=== PATIENT | female | born 1990 | race Caucasian/White ===

== ENCOUNTER → 2021-04-24 10:29 | Outpatient (CLI) | payer OTHER, MEDICAID, SELFPAY ==
--- NOTE | 2021-04-24 10:31 | DI.RAD.S_ITS ---
PROCEDURE: XR CHEST 2V INDICATIONS: cough, chest congestion, intermittent wheezing TECHNIQUE: 2 views of the chest were acquired. COMPARISON: None. FINDINGS: Surgical changes and devices: None. Lungs and pleura: Lungs are clear. No pleural effusions or pneumothorax. Mediastinum: Mediastinal contours are normal. Heart size is normal. Bones and chest wall: No suspicious bony abnormalities. Soft tissues appear unremarkable. IMPRESSION: No evidence acute pulmonary process. Dictated by: Kwabena Le M.D. on 04/24/2021 at 11:00 Approved by: Kwabena Le M.D. on 04/24/2021 at 11:00
== END ==
PROVIDERS: Family Provider Obstetrics & Gynecology; PCP Family Medicine; Referring Provider Physician Assistant; Visit Provider Physician Assistant
DX: R05 Cough (principal); R06.2 Wheezing; R09.89 Other specified symptoms and signs involving the circulatory and respiratory systems
CPT/HCPCS: 71046

== ENCOUNTER 2025-01-25 10:33 | Emergency (ER) | payer BC, SELFPAY ==
[2025-01-25] VITALS (9 sets, daily range): BP systolic 107–138; BP diastolic 55–72; PULSE 61–78; RESP 14; TEMP 36.7; O2SAT 97–100; BMI 18.6
--- NOTE | 2025-01-25 10:53 | ED.ABDPAIN ---
HPI - Abdominal Pain General Chief Complaint: Abdominal Pain Stated Complaint: lower right stomach side cramps Time Seen by Provider: 01/25/25 10:52 Source: patient Mode of arrival: Ambulatory History of Present Illness HPI narrative: 34-year-old female with no significant past medical history presenting for evaluation from home for abdominal pain. She states that she started her period this morning and she felt/heard a ?pop in her abdomen. She states that she stood up and felt like she was going to pass out secondary to this. She states that she does have history of ovarian cyst, states that she has had pain similar but never to this extent. He is now stating that she is having persistent right lower quadrant abdominal pain. She denies any other symptoms such as headache visual disturbances chest pain shortness breath fever chills nausea vomiting or any other GI/ symptoms time. Related Data Home Medications Medication Instructions Recorded Confirmed No Known Home Medications 04/24/21 04/24/21 Previous Rx's Medication Instructions Recorded benzonatate 100 mg capsule 100 mg PO BID-TID PRN cough #14 04/24/21 caps Allergies Allergy/AdvReac Type Severity Reaction Status Date / Time codeine Allergy Unknown Verified 01/25/25 10:42 hydromorphone Allergy Unknown Verified 01/25/25 10:42 amoxicillin AdvReac Intermediate Itchy and Verified 01/25/25 10:42 nausea Review of Systems Review of Systems Narrative: General: Denies fever, chills, weight loss HEENT: Denies headache, eye drainage, eye irritation, head trauma, sore throat, voice change Cardiovascular: Denies any chest pain, palpitations, tachycardia Respiratory: Denies any shortness of breath, cough, wheeze, stridor GI/: Positive right pelvic pain, Denies any abdominal pain, nausea, vomiting, diarrhea, bright red blood per rectum, melanotic stools, urinary frequency, urinary retention, dysuria, hematuria MSK: Denies any joint pain, muscle pains, swelling Skin: Denies any rashes, lesions, discoloration Neuro: Denies any headache, lightheadedness, dizziness, fainting, weakness Psych: Denies SI/HI Patient History Surgical History Status post delivery (03/07/15) Social History Smoking Status: Unknown if ever smoked Smoking Status: Unknown if ever smoked Exam Narrative Exam Narrative: General: Cooperative, well-developed, not in acute distress HEENT: Normocephalic, atraumatic, PERRLA, normal sclera, eyelids normal Neck: Active full range of motion, atraumatic Chest: Normal to inspection, negative crepitus, no overlying erythema ecchymosis Respiratory: Normal respiratory effort, not in acute respiratory distress, clear to auscultation bilaterally negative cough, wheeze, tachypnea, rhonchi, rales Cardiology: Regular rate rhythm negative gallop, murmur, rubs GI/: Mild tenderness to palpation of the right pelvic region, soft, non rigid, normal to inspection, exam deferred MSK: Full active range of motion in all 4 extremities, atraumatic, no tenderness to palpation of any bony prominences Skin: No rashes or lesions noted Neuro: Alert awake oriented x3, moves all 4 extremities spontaneously, cranial nerves intact, able to answer all questions appropriately follows commands appropriately Psych: Cooperative, negative suicidal or homicidal ideations Initial Vital Signs Initial Vital Signs: Vital Signs Temperature 98.0 F 01/25/25 10:42 Pulse Rate 72 01/25/25 10:42 Respiratory Rate 14 01/25/25 10:42 Blood Pressure 110/55 L 01/25/25 10:42 Pulse Oximetry 99 01/25/25 10:42 Oxygen Delivery Method Room Air 01/25/25 10:42 Course Orders Ordered: ED Orders 01/25/25 10:52 Ictotest Urine Stat Urine Microscopic Stat 01/25/25 10:54 US pelvic complete Stat 01/25/25 11:05 Complete Blood Count AUTO DIFF Stat Comprehensive Metabolic Panel Stat Lipase Stat MAG [Magnesium] Stat Ondansetron HCl (Ondansetron 4 Mg/2 Ml Inj) 4 mg IV NOW PRN PRN Reason: Nausea And Vomiting Last Admin: 01/25/25 11:43 Dose: 4 mg Documented By: MEGAN Ondansetron HCl (Ondansetron 4 Mg Odt) 4 mg PO NOW PRN PRN Reason: Nausea And Vomiting Discontinued Medications Sodium Chloride (Normal Saline 0.9%) 1,000 mls @ 1,000 mls/hr IV BOLUS ONE Stop: 01/25/25 11:53 Last Infusion: 01/25/25 12:37 Dose: Infused Documented By: Admin: 01/25/25 11:43 Dose: 1,000 mls/hr Documented By: MEGAN Ketorolac Tromethamine (Ketorolac 30 Mg/Ml Vial) 30 mg IV NOW ONE Stop: 01/25/25 10:55 Last Admin: 01/25/25 11:43 Dose: 30 mg Documented By: MEGAN Vital Signs Vital signs: Vital Signs - 8 hr 01/25/25 10:42 01/25/25 10:50 01/25/25 10:59 Temperature 98.0 F Pulse Rate 72 66 61 Respiratory Rate 14 Blood Pressure 110/55 L Pulse Oximetry 99 97 99 Oxygen Delivery Method Room Air 01/25/25 10:59 01/25/25 11:00 01/25/25 11:30 Temperature Pulse Rate 66 74 Respiratory Rate Blood Pressure 130/70 Pulse Oximetry 99 99 Oxygen Delivery Method 01/25/25 11:40 01/25/25 11:40 01/25/25 12:00 Temperature Pulse Rate 78 69 Respiratory Rate Blood Pressure 138/72 Pulse Oximetry 97 100 Oxygen Delivery Method 01/25/25 12:30 01/25/25 12:35 01/25/25 12:35 Temperature Pulse Rate 68 75 Respiratory Rate Blood Pressure 107/64 Pulse Oximetry 98 100 Oxygen Delivery Method MDM - Abdominal Pain Differential Diagnosis Differential diagnosis: Likely abdominal pain, pancreatitis and other (Urinary tract infection, ovarian cysts) Lab Data 01/25/25 11:05 01/25/25 11:05 Labs: Lab Results 01/25/25 01/25/25 Range/Units 10:52 11:05 WBC 7.1 (4.5-11.0) X10^3/uL RBC 4.02 (4.0-5.2) X10^6/uL Hgb 12.7 (12.0-16.0) g/dL Hct 37.4 (36-46) % MCV 93.2 (80-100) fL MCH 31.5 (26-34) PG MCHC 33.8 (30-36) % RDW 13.6 (11.6-14.8) % Plt Count 198 (150-400) X10^3/uL Neut % (Auto) 70.9 (50-75) % Lymph % (Auto) 20.9 L (25-40) % Humphreys % (Auto) 5.0 (3-14) % Eos % (Auto) 2.7 (2-4) % Baso % (Auto) 0.5 (0-2) % Neut # (Auto) 5000 (9313-3371) /uL Lymph # (Auto) 1500 (8462-6258) /uL Humphreys # (Auto) 400 (0-900) /uL Eos # (Auto) 200 (0-450) /uL Baso # (Auto) 0 (0-100) /uL Sodium 140 (137-145) mmol/L Potassium 3.9 (3.4-5.1) mmol/L Chloride 107 (98-107) mmol/L Carbon Dioxide 24 (22-32) mmol/L BUN 8 (7-17) mg/dL Creatinine 0.70 (0.52-1.04) mg/dL Estimated GFR > 60 (>60) mL/min BUN/Creatinine Ratio 11.4 (6-22) Glucose 120 H (70-100) mg/dL Calcium 9.0 (8.4-10.2) mg/dL Magnesium 1.7 (1.6-2.3) mg/dL Total Bilirubin 0.8 (0.2-1.3) mg/dL AST 33 (14-36) IU/L ALT 22 (<35) IU/L Alkaline Phosphatase 50 (38-126) U/L Total Protein 7.4 (6.3-8.2) g/dL Albumin 4.4 (3.5-5.0) g/dL Globulin 3.0 (1.7-4.1) g/dL Albumin/Globulin Ratio 1.5 (1.0-2.8) Lipase 36 (23-300) U/L Ur Bilirubin Confirm Negative (Negative) Urine RBC 10-30/hpf H (0-5/HPF) Urine WBC 0-1/hpf (0-5/HPF) Ur Squamous Epith Cells 1-5 /hpf (0-5/HPF) Urine Bacteria None seen (None) Urine Mucus 2+ H (Negative) Ur Culture Indicated? Cult not indicated Vol Urine Centrifuged Low vol <10ml (spun) A Point of care testing: Point of Care Testing Test Results Negative Urine Dip Bedside Urine Glucose Negative Bedside Urine Bilirubin + 1 Bedside Urine Ketone ++ 40 Urine Specific [place] 1.025 Bedside Urine Occult Blood +++ Bedside Urine pH 6.0 Bedside Urine Protein + 30 Bedside Urine Urobilinogen - Negative Bedside Urine Nitrite - Negative Bedside Urine Leukocytes - Negative Esterase Imaging Data US - FILAMENT WELDER: Radiologist's Impression: [address] [address] Ultrasound Report Signed Patient: Emani Shore MR#: [id number] : 1990 Acct:[id number] Age/Sex: 34 / F Date of Service: 01/25/25 Loc: ED Accession Number: [id number] Procedure: US pelvic complete Ordering Provider: Eddie Owen D.O. PROCEDURE: US PELVIC COMPLETE INDICATIONS: right sided pelvic pain TECHNIQUE: Real-time scanning was performed of the pelvic organs, with image documentation. Additional endovaginal scanning was necessary due to incomplete visualization of the adnexal and endometrial structures by transabdominal scanning. COMPARISON: US, US PELVIC+TRANSVAG, 07/24/2016, 8:26. FINDINGS: Uterus: Uterus is anteverted and is prominent in size at 11.1 x 4.6 x 6.3 cm. The myometrium is homogeneous. The endometrium measures 4.5 mm combined thickness. Ovaries: The right ovary measures 1.8 x 3.2 x 1.9 cm, with a calculated ovarian volume of 5.8 cc. The left ovary measures 3.2 x 2.2 x 2.1 cm, with a calculated ovarian volume of 7.7 cc. Simple right ovarian cyst measuring 1.6 cm. Other: No pathologic free abdominal or pelvic fluid. IMPRESSION: Simple right ovarian cyst. MDM Narrative Medical decision making narrative: 34-year-old female with past medical history of ovarian cysts, comes in for right pelvic pain, she states that today she started her menstrual cycle, she states that an hour after she stood up felt a pop to her right pelvic region, state that the pain caused her to feel lightheaded dizzy and sweaty. She states that she is feeling improved but still having some cramping pain. States that she has had similar pain but not this extreme due to her history of ovarian cyst. Patient had lab work urinalysis ultrasound performed here in the emergency department. Ultrasound just showing right simple ovarian cyst, patient without any leukocytosis, had complete resolution of her symptoms here after Toradol and fluids, urinalysis not consistent with acute urinary tract infection, Chem panel unremarkable. Symptoms more likely secondary to patient's menstrual cycles/ovarian cysts, she was given strict return precautions she verbalized understanding of this and agrees to being discharged home with outpatient follow up Discharge Plan Departure Patient Disposition: Home Clinical Impression: Cyst of right ovary Instructions: DI for Ovarian Cyst Activity Restrictions/Additional Instructions: Please follow up with the primary care and OBGYN in outpatient setting Please read the discharge instructions sheet carefully and bring all papers to all doctor follow-up visits, as it may contain information that your doctor may want to see. Disease processes change and evolve, if your symptoms worsen or if you develop any new symptoms that are concerning to you please return for evaluation. Your evaluation today does not show any evidence of any life-threatening/serious illnesses requiring admission to the hospital or surgery. Please follow-up with your doctor for re-evaluation in approximately 1 day. Seek immediate medical attention for any worrisome symptoms. *If you do not have a primary care provider please contact the [facility] Resource line at [phone]. They will ask some questions about your medical history and help get you set up with a doctor in the community. Prescriptions: No Action No Known Home Medications benzonatate 100 mg capsule 100 mg PO BID-TID PRN (Reason: cough) Qty: 14 0RF Referrals: Kale Kelly MD [Primary Care Provider] - Stand Alone Forms: Patient Portal/API/Survey
--- NOTE | 2025-01-25 10:54 | DI.US.S_ITS ---
PROCEDURE: US PELVIC COMPLETE INDICATIONS: right sided pelvic pain TECHNIQUE: Real-time scanning was performed of the pelvic organs, with image documentation. Additional endovaginal scanning was necessary due to incomplete visualization of the adnexal and endometrial structures by transabdominal scanning. COMPARISON: US, US PELVIC+TRANSVAG, 07/24/2016, 8:26. FINDINGS: Uterus: Uterus is anteverted and is prominent in size at 11.1 x 4.6 x 6.3 cm. The myometrium is homogeneous. The endometrium measures 4.5 mm combined thickness. Ovaries: The right ovary measures 1.8 x 3.2 x 1.9 cm, with a calculated ovarian volume of 5.8 cc. The left ovary measures 3.2 x 2.2 x 2.1 cm, with a calculated ovarian volume of 7.7 cc. Simple right ovarian cyst measuring 1.6 cm. Other: No pathologic free abdominal or pelvic fluid. IMPRESSION: Simple right ovarian cyst. We strive to produce accurate, complete, and clear reports of imaging services. To assist us in improving patient care, this report was composed using standard report templates and voice recognition software. Therefore, it may contain abnormal punctuation, insertions and/or omissions. Occasional wrong-word or sound-alike substitutions may occur. Though we review the report and make efforts to correct it, we do recommend that the report be read carefully in proper context to recognize any text inaccuracies. Dictated by: Rosibel Ware M.D. on 01/25/2025 at 12:19 Approved by: Rosibel Ware M.D. on 01/25/2025 at 12:21
[2025-01-25 11:12] LABS: Ictotest Urine Negative (Negative)
[2025-01-25 11:13] LABS: RBC Urine 10-30/HPF (0-5/HPF); Urine Volume Low Vol <10mL (spun); WBC Urine 0-1/HPF (0-5/HPF)
[2025-01-25 11:14] LABS: Bacteria Urine None Seen; Culture Indicated Urine Cult Not Indicated; Mucus Urine 2+ (Negative); Squamous Epithelial Cell Urine 1-5 /HPF (0-5/HPF)
[2025-01-25 11:15] LABS: Add Manual Diff / Slide Review NO; Basophils Absolute Auto 0 /uL (0-100); Basophils Percent Auto 0.5 % (0-2); Eosinophils Absolute Auto 200 /uL (0-450); Eosinophils Percent Auto 2.7 % (2-4); Hematocrit 37.4 % (36-46); Hemoglobin 12.7 g/dL (12.0-16.0); Lymphocytes Absolute Auto 1500 /uL (1100-4500); Lymphocytes Percent Auto 20.9 % (25-40); Mean Corpuscular HGB Conc 33.8 % (30-36); Mean Corpuscular Hemoglobin 31.5 PG (26-34); Mean Corpuscular Volume 93.2 fL (80-100); Monocytes Absolute Auto 400 /uL (0-900); Neutrophils Absolute Auto 5000 /uL (1500-7000); Neutrophils Percent Auto 70.9 % (50-75); Platelet Count 198 X10^3/uL (150-400); Red Blood Cell Count 4.02 X10^6/uL (4.0-5.2); Red Cell Distribution Width 13.6 % (11.6-14.8); White Blood Cell Count 7.1 X10^3/uL (4.5-11.0)
[2025-01-25 11:28] LABS: Alanine Aminotransferase 22 IU/L (<35); Albumin 4.4 g/dL (3.5-5.0); Albumin Globulin Ratio 1.5 (1.0-2.8); Alkaline Phosphatase 50 U/L (38-126); Aspartate Aminotransferase 33 IU/L (14-36); BUN Creatinine Ratio 11.4 (6-22); Bilirubin Total 0.8 mg/dL (0.2-1.3); Blood Urea Nitrogen 8 mg/dL (7-17); Carbon Dioxide 24 mmol/L (22-32); Chloride 107 mmol/L (98-107); Estimated Glomerular Filt Rate > 60 mL/min (>60); Glucose 120 mg/dL (70-100); HEMOLYSIS < 15 (0-50); Lipase 36 U/L (23-300); Magnesium 1.7 mg/dL (1.6-2.3); Potassium 3.9 mmol/L (3.4-5.1); Sodium 140 mmol/L (137-145); Total Protein 7.4 g/dL (6.3-8.2)
[2025-01-25] MEDS: KETOROLAC 30 MG/ML VIAL IV (11:43)
[2025-01-25] MEDS: ONDANSETRON 4 MG/2 ML INJ IV (11:43)
[2025-01-25] MEDS: SODIUM CHLORIDE 0.9% 1,000 ML 1000 ML IV (11:43)
== END 2025-01-25 12:53 | disposition home or self-care (01) ==
PROVIDERS: Emergency Provider Student in an Organized Health Care Education/Training Program; Family Provider Obstetrics & Gynecology; PCP Family Medicine
DX: N83.201 Unspecified ovarian cyst, right side (principal)
CPT/HCPCS: 36415; 76830; 76856; 80053; 81003; 81015; 81025; 83690; 83735; 85025; 93975; 96361; 96374; 96375; 99284; J1885; J2405

== ENCOUNTER → 2025-09-05 09:29 | Outpatient (CLI) | payer BC, SELFPAY ==
--- NOTE | 2025-09-05 09:30 | DI.MG.S_ITS ---
MM diagnostic mammo BI, US breast BI limited: 09/05/2025 BI-RADS: 3 CLINICAL: 35-year old female for bilateral diagnostic mammogram and bilateral diagnostic breast ultrasound. Tyrer-Cuzick lifetime risk of 29.8%. Current reported family history of breast cancer: maternal grandmother, paternal grandmother and mother. The patient reports a palpable abnormality in both breasts. PRIOR EXAMS: None. This is a baseline examination. MAMMOGRAPHY TECHNIQUE: 2D and 3D (tomosynthesis) digital mammographic views obtained, with additional images as needed for full coverage. Current study was also evaluated with a Computer Aided Detection (CAD) system. ULTRASOUND TECHNIQUE Real-time kraft scale and color doppler imaging of the area of clinical interest was performed with image documentation. TARGETED Bilateral Breast Ultrasound: Real-time ultrasound exam was performed focused to area of clinical and/or imaging concern. DENSITY D. The breasts are extremely dense, which lowers the sensitivity of mammography. MAMMOGRAPHY FINDINGS Right (finding-1): Upper Outer Quadrant, Middle depth: A skin marker was placed in the area of concern, and no mammographic abnormalities are identified or to account for concern by the patient of a palpable lump. No suspicious mass, asymmetry, microcalcification, or other abnormality seen. Right (finding-3): Upper Outer Quadrant, Middle depth, measuring 1cm: There is a focal asymmetry present. Left (finding-2): Upper Outer Quadrant, Middle depth: A skin marker was placed in the area of concern, and no mammographic abnormalities are identified or to account for concern by the patient of a palpable lump. No suspicious mass, asymmetry, microcalcification, or other abnormality seen. ULTRASOUND FINDINGS Right (finding-3): Upper Outer at 10:30, 5 cm from nipple, measuring 0.9 x 0.4 x 1 cm: There is an oval, circumscribed, hypoechoic cyst vs solid mass that is parallel. Right (finding-1): Upper Outer at 10:30, 7 cm from nipple: Underlying the surface marker, there is no sonographic abnormality to account for concern by the patient of a palpable lump. Right: Axilla: No abnormal lymph nodes are seen in the axilla. Left (finding-2): Upper Outer at 1:30, 6 cm from nipple: Underlying the surface marker, there is no sonographic abnormality to account for concern by the patient of a palpable lump. IMPRESSION: Right (CvS): Upper Outer at 10:30, 5 cm from nipple, measuring 0.9 x 0.4 x 1 cm * Probably Benign. Left * No evidence of malignancy. RECOMMENDATIONS Right: Upper Outer at 10:30, 5 cm from nipple * Six month followup with diagnostic mammography and diagnostic ultrasound. Bilateral * Clinical follow-up is recommended, and further management of palpable abnormalities or other focal signs or symptoms should be based on the results of clinical evaluation. If palpable abnormality or other concerning symptom persists or progresses, further clinical evaluation should be considered. COMMENTS: Findings and recommendations were conveyed to the patient during today's evaluation. In addition, this patient has an elevated lifetime risk for breast cancer of over 20%. Recommend consideration for annual screening breast MRI as an adjunct to screening mammography. OVERALL ASSESSMENT CATEGORY BI-RADS-3: Probably Benign. ELECTRONICALLY SIGNED: Maya Birmingham M.D. on 09/06/2025 at 04:27:11 PM PT Interpreting Station ID: [id number]
== END ==
LOC: MAMMO 09:29
PROVIDERS: PCP Nurse Practitioner Family; Referring Provider Nurse Practitioner Family; Visit Provider Nurse Practitioner Family
DX: N63.10 Unspecified lump in the right breast, unspecified quadrant (principal); N63.20 Unspecified lump in the left breast, unspecified quadrant; R92.343 Mammographic extreme density, bilateral breasts; Z80.3 Family history of malignant neoplasm of breast
CPT/HCPCS: 76642; 77066; G0279